=== PATIENT | female | born 2000 | race Two or more races ===

== ENCOUNTER 2022-08-28 19:55 | Emergency (ER) | payer OTHER ==
[2022-08-28 20:14] VITALS: BP 105/70; PULSE 89; RESP 18; TEMP 98.1; BMI 18.3
[2022-08-28] MEDS ORDERED: DOXYCYCLINE HYCLATE 100 MG CAPSULE PO ONE ×2 (22:12→22:16)
[2022-08-28] MEDS ORDERED: LIDOCAINE HCL 1%, 10 MG/ML (20ML VIAL) ONE (22:20)
== END 2022-08-28 22:55 | disposition home or self-care (01) ==
LOC: JERFT 19:55
DX: N89.8 Other specified noninflammatory disorders of vagina (principal); N76.89 Other specified inflammation of vagina and vulva
CPT/HCPCS: 36415; 84703; 87491; 87591; 87661; 99284-25

== ENCOUNTER 2022-09-23 10:31 | Emergency (ER) | payer SELFPAY ==
[2022-09-23 10:36] VITALS: BP 131/83; PULSE 82; RESP 18; TEMP 98.2; BMI 18.3
== END 2022-09-23 12:38 | disposition home or self-care (01) ==
LOC: JER 10:31
DX: J06.9 Acute upper respiratory infection, unspecified (principal); R05.1 Acute cough
CPT/HCPCS: 0241U-QW; 71046-TC-FY; 87651; 99284-25

== ENCOUNTER 2023-01-26 23:08 | Emergency (ER) | payer SELFPAY ==
[2023-01-26 23:13] VITALS: BP 112/73; PULSE 70; RESP 18; TEMP 98; BMI 17.7
[2023-01-26 23:46] LABS: EPI CELLS 24 /uL (0-25.1); HYALINE CASTS 1 /uL (0-3.1); URINE APPEARANCE CLEAR; URINE BACTERIA 212 /uL (0-1359); URINE BILIRUBIN NEGATIVE (NEGATIVE); URINE COLOR YELLOW; URINE GLUCOSE (UA) NEGATIVE (NEGATIVE); URINE KETONE TRACE (NEGATIVE); URINE LEUK ESTERASE 1+ (NEGATIVE); URINE NITRITE NEGATIVE (NEGATIVE); URINE PROTEIN NEGATIVE (NEGATIVE); URINE RBC 4 /uL (0-23.9); URINE UROBILINOGEN 0.2 mg/dL (0.2-1.0); URINE WBC 92 /uL (0-25.8)
== END 2023-01-27 01:08 | disposition home or self-care (01) ==
LOC: JER 23:08
DX: Z34.90 Encounter for supervision of normal pregnancy, unspecified, unspecified trimester (principal)
CPT/HCPCS: 81003; 84703; 87086; 99283-25